=== PATIENT | male | born 1950 | race Caucasian/White ===

== ENCOUNTER 2017-12-09 08:30 | Inpatient (IN) | payer MEDICARE, BC ==
[~2017-12-09] VITALS: Ht 177.8 cm; Wt 108.0 kg
[2017-12-11 15:12] LABS: BASOPHILS % (AUTO) 0.4 % (0-1); EOSINOPHILS # (AUTO) 0.1 X10'3 (0-0.9); LYMPHOCYTES # (AUTO) 2.1 X10'3 (1.1-4.8); LYMPHOCYTES % (AUTO) 28.8 % (21-51); MEAN CORPUSCULAR HEMOGLOBIN 31.1 PG (27.0-31.0); MEAN CORPUSCULAR HGB CONC 34.9 % (33.0-36.5); MEAN CORPUSCULAR VOLUME 88.9 FL (78-98); MEAN PLATELET VOLUME 8.1 FL (7.4-10.4); MONOCYTES # (AUTO) 0.7 X10'3 (0-0.9); MONOCYTES % (AUTO) 9.5 % (2-12); NEUTROPHILS # (AUTO) 4.4 X10'3 (1.8-7.7); NEUTROPHILS % (AUTO) 59.3 % (42-75); PRE OP HEMATOCRIT 41.9 % (42.0-52.0); PRE OP HEMOGLOBIN 14.6 g/dL (14.0-17.9); PRE OP PLATELET COUNT 246 X10'3 (140-440); RED BLOOD COUNT 4.72 X10'6 (4.70-6.10); RED CELL DISTRIBUTION WIDTH 12.8 % (11.5-14.5)
[2017-12-11 15:16] LABS: CLARITY,URINE CLOUDY (Clear); COLOR,URINE YELLOW (Yellow); GLUCOSE, URINE NEGATIVE (Neg); KETONES,URINE NEGATIVE (Neg); LEUKOCYTE ESTERASE ,URINE NEGATIVE (Neg); NITRITES, URINE NEGATIVE (Neg); OCCULT BLOOD,URINE TRACE-INTACT (Neg); PROTEIN,URINE NEGATIVE (Neg); UROBILINOGEN,URINE 0.2 E.U/dL (0.2-1.0)
[2017-12-11 15:22] LABS: HEMOGLOBIN A1C 6.9 % (4.5-6.2)
[2017-12-11 15:23] LABS: UA COLLECTION TYPE CLN CATCH MIDSTREAM
[2017-12-11 15:23] LABS: PRE OP PROTIME 10.4 SECONDS (9.0-12.0)
[2017-12-11 15:24] LABS: BACTERIA,URINE FEW /HPF (Neg); RBC,URINE 0-2 /HPF (0-2); SQUAMOUS EPITHELIAL CELL,UR FEW /LPF (FEW)
[2017-12-11 15:25] LABS: AMORPHOUS PHOSPHATES 2+
[2017-12-11 15:28] LABS: ALBUMIN 3.9 G/DL (3.4-5.0); ALBUMIN/GLOBULIN RATIO 1.1 (1.1-1.5); ALKALINE PHOSPHATASE 58 IU/L (46-116); BLOOD UREA NITROGEN 18 MG/DL (7-18); BUN/CREATININE RATIO 16.8 (5.4-32.0); CALCIUM 9.1 MG/DL (8.5-10.1); CHLORIDE 104 MMOL/L (99-107); CREATININE 1.07 MG/DL (0.60-1.10); PRE OP ALT 53 U/L (30-65); PRE OP ANION GAP 9 (8-16); PRE OP AST 24 U/L (10-37); PRE OP BILIRUB, TOTAL 0.5 MG/DL (0.0-1.0); PRE OP GLUCOSE 197 MG/DL (70-104); PRE OP POTASSIUM 4.4 MMOL/L (3.4-5.1); PRE OP SODIUM 141 MMOL/L (135-145); TOTAL CARBON DIOXIDE 28.1 MMOL/L (24-32); TOTAL PROTEIN 7.4 G/DL (6.4-8.2); eGFR 69 ML/MIN
[2017-12-11] MEDS ORDERED: TESTOSTERONE SUPPORT PO (15:33)
[2017-12-11] MEDS ORDERED: UBID100C16 PO (15:33)
[2017-12-11] MEDS ORDERED: LEVO1CAP3 PO (15:33)
[2017-12-11] MEDS ORDERED: CINN500C15 PO (15:33)
[2017-12-11] MEDS ORDERED: ATOR40TA72 PO (15:33)
[2017-12-11] MEDS ORDERED: MULT-933 PO (15:33)
[2017-12-11] MEDS ORDERED: BENA20TA10 PO (15:33)
[2017-12-11] MEDS ORDERED: METF500T3 PO (15:33)
[2017-12-11] MEDS ORDERED: ASPI81TA52 PO (15:33)
[2017-12-11] MEDS ORDERED: LINA5TAB4 PO (15:33)
[2017-12-11] MEDS ORDERED: TURM538C PO (15:33)
[2017-12-18] VITALS (20 sets, daily range): BP systolic 120–168; BP diastolic 72–94
[2017-12-18] MEDS ORDERED: ringers solution, lacted 1,000 ML IV SCH ×2 (05:00→09:03)
[2017-12-18] MEDS ORDERED: vancomycin inj 1,500 MG in normal saline 300ml IV soln IV ONE (05:30)
[2017-12-18] MEDS ORDERED: famotidine 20mg tablet PO ONE (05:30)
[2017-12-18] MEDS ORDERED: celeCOXIB 100mg capsule PO ONE (05:30)
[2017-12-18] MEDS ORDERED: ceFAZolin 2gm in dextrose, iso 100 ML IV ONE (05:30)
[2017-12-18] MEDS ORDERED: acetaminophen 325mg tablet PO ONE (05:30)
[2017-12-18] MEDS ORDERED: oxyCODONE SR 10mg (sust. release) tab PO ONE (05:30)
[2017-12-18] MEDS ORDERED: gabapentin 300mg capsule PO ONE (05:30)
[2017-12-18] MEDS ORDERED: tranexamic acid inj. 1,000 MG in normal saline 100ml IV soln 90 ML IV ONE (05:30)
[2017-12-18] MEDS ORDERED: metoclopramide 5 mg/ml inj IV ONE (05:30)
[2017-12-18] MEDS ORDERED: LIDOcaine 1% (10mg/ml) 2ml vial ONE (06:03)
[2017-12-18] MEDS ORDERED: epiNEPHrine 1 mg/ml inj ONE ×2 (06:41→07:24)
[2017-12-18] MEDS ORDERED: ROPIVAcaine 0.5% (5mg/ml) 30ml vial ONE ×2 (06:41→07:54)
[2017-12-18] MEDS ORDERED: cloNIDine hcl/PF 100mcg/ml inj ONE ×2 (06:41→07:13)
[2017-12-18] MEDS ORDERED: ketorolac trometh. 30mg/ml inj. ONE (06:41)
[2017-12-18] MEDS ORDERED: vancomycin 1,000mg inj ONE ×2 (06:59→08:26)
[2017-12-18] MEDS ORDERED: midazolam 2 mg/2 ml injection ONE ×2 (07:16→07:41)
[2017-12-18] MEDS ORDERED: fentaNYL/PF 50MCG/1 ML 2ML syringe ONE (07:16)
[2017-12-18] MEDS ORDERED: MORPHINE SULFATE/PF 0.5 MG/ML 10ML AMPUL ONE (07:21)
[2017-12-18] MEDS ORDERED: diphenhydrAMINE 50 mg/ml inj ONE (07:25)
[2017-12-18] MEDS ORDERED: LIDOcaine 1%/PF (10mg/ml) 5ml vial ONE (07:45)
[2017-12-18] MEDS ORDERED: propofol inj 20 ML IV ONE ×2 (07:45→08:56)
[2017-12-18] MEDS ORDERED: naloxone 2mg/2ml inj 2 MG in normal saline 500ml IV soln 500 ML IV PRN (09:03)
[2017-12-18] MEDS ORDERED: proCHLORperazine 10 MG/2 ml inj IV PRN (09:05)
[2017-12-18] MEDS ORDERED: morphine 4 MG/ML inj SYRINge IV PRN ×3 (09:05→10:00)
[2017-12-18] MEDS ORDERED: ondansetron/PF 4mg/2ml inj IV PRN ×3 (09:05→10:00)
[2017-12-18] MEDS ORDERED: diphenhydrAMINE 50 mg/ml inj IV PRN (09:05)
[2017-12-18] MEDS ORDERED: meperidine/PF 50mg/ml syringe IV PRN ×3 (09:05)
[2017-12-18] MEDS ORDERED: dexamethasone 4mg/ml inj ONE (09:53)
[2017-12-18] MEDS: potassium cl 20mEq in 1/2 NS 1,000 ML IV SCH ×2 (09:58→20:30)
[2017-12-18] MEDS ORDERED: diphenhydrAMINE 25mg capsule PO PRN (10:00)
[2017-12-18] MEDS ORDERED: magnesium hydroxide 30ml (MOM) UD suspension PO PRN (10:00)
[2017-12-18] MEDS ORDERED: MESSAGE TO PHARMACY PO ONE (10:00)
[2017-12-18] MEDS ORDERED: dextrose ORAL solution 15 GM/59 ML bottle PO PRN ×2 (10:00)
[2017-12-18] MEDS ORDERED: bisacodyl 10mg suppository rectal RC PRN (10:00)
[2017-12-18] MEDS ORDERED: acetaminophen 325mg tablet PO PRN (10:00)
[2017-12-18] MEDS ORDERED: glucagon, human recombinant 1mg kit SUBCUT PRN (10:00)
[2017-12-18] MEDS ORDERED: dextrose 50%-water 50ml dispensing syringe IV PRN ×2 (10:00)
[2017-12-18] MEDS: diphenhydrAMINE 25mg capsule PO PRN ×2 (12:26→20:42)
[2017-12-18] MEDS: oxyCODONE/APAP 10/325mg tablet PO SCH ×3 (14:33→20:25)
[2017-12-18] MEDS: gabapentin 300mg capsule PO SCH ×2 (14:33→20:28)
[2017-12-18] MEDS: ceFAZolin 2gm in dextrose, iso 100 ML IV SCH (16:52)
[2017-12-18] MEDS: celeCOXIB 100mg capsule PO SCH (20:24)
[2017-12-18] MEDS: ascorbic acid 500mg tablet PO SCH (20:26)
[2017-12-18] MEDS: lisinopril 20mg tablet PO SCH (20:27)
[2017-12-18] MEDS: atorvastatin 20mg tablet PO SCH (20:28)
[2017-12-18] MEDS: sennosides 8.6mg tablet PO SCH (20:29)
[2017-12-18] MEDS: insulin glargine (Lantus) pen - multi-dose SQ SCH ×2 (20:45→22:06)
[2017-12-19] MEDS: ceFAZolin 2gm in dextrose, iso 100 ML IV SCH (00:11)
[2017-12-19] MEDS: oxyCODONE/APAP 10/325mg tablet PO SCH ×6 (00:14→19:34)
[2017-12-19] MEDS: potassium cl 20mEq in 1/2 NS 1,000 ML IV SCH ×4 (01:58→22:40)
[2017-12-19 02:36] VITALS: BP 121/72
[2017-12-19 06:00] VITALS: BP 133/73
[2017-12-19 06:15] LABS: BASOPHILS % (AUTO) 0.2 % (0-1); EOSINOPHILS # (AUTO) 0.2 X10'3 (0-0.9); EOSINOPHILS % (AUTO) 1.4 % (0-6); HEMATOCRIT 36.8 % (42.0-52.0); HEMOGLOBIN 12.7 g/dl (14.0-17.9); LYMPHOCYTES # (AUTO) 1.5 X10'3 (1.1-4.8); LYMPHOCYTES % (AUTO) 13.7 % (21-51); MEAN CORPUSCULAR HEMOGLOBIN 30.8 PG (27.0-31.0); MEAN CORPUSCULAR HGB CONC 34.4 % (33.0-36.5); MEAN CORPUSCULAR VOLUME 89.6 FL (78-98); MEAN PLATELET VOLUME 7.9 FL (7.4-10.4); MONOCYTES # (AUTO) 1.2 X10'3 (0-0.9); NEUTROPHILS # (AUTO) 8.1 X10'3 (1.8-7.7); NEUTROPHILS % (AUTO) 73.7 % (42-75); PLATELET COUNT 228 X10'3 (140-440); RED BLOOD COUNT 4.11 X10'6 (4.70-6.10); RED CELL DISTRIBUTION WIDTH 12.9 % (11.5-14.5)
[2017-12-19 06:43] LABS: ANION GAP 8 (8-16); CHLORIDE 106 MMOL/L (99-107); SODIUM 141 MMOL/L (135-145); TOTAL CARBON DIOXIDE 27.1 MMOL/L (24-32)
[2017-12-19] MEDS: ascorbic acid 500mg tablet PO SCH ×2 (07:14→19:32)
[2017-12-19] MEDS: gabapentin 300mg capsule PO SCH ×3 (07:14→19:33)
[2017-12-19] MEDS: lisinopril 20mg tablet PO SCH ×2 (07:15→19:32)
[2017-12-19] MEDS: celeCOXIB 100mg capsule PO SCH ×2 (07:15→19:32)
[2017-12-19] MEDS: multivitamins, therapeutics tablet PO SCH (07:15)
[2017-12-19] MEDS: oxyCODONE/APAP 10/325mg tablet PO PRN ×3 (09:32→17:35)
[2017-12-19] MEDS: aspirin 325mg tablet PO SCH (09:32)
[2017-12-19] MEDS: insulin Lispro (HumaLOG) vial - multi-dose SQ SCH ×3 (09:34→19:05)
[2017-12-19 10:00] VITALS: BP 145/70
[2017-12-19 15:00] VITALS: BP 129/73
[2017-12-19 18:46] VITALS: BP 132/76
[2017-12-19] MEDS: atorvastatin 20mg tablet PO SCH (19:33)
[2017-12-19] MEDS: sennosides 8.6mg tablet PO SCH (19:33)
[2017-12-19] MEDS: insulin glargine (Lantus) pen - multi-dose SQ SCH (21:23)
[2017-12-19 23:51] VITALS: BP 162/97
[2017-12-20] MEDS: oxyCODONE/APAP 10/325mg tablet PO SCH ×6 (00:14→19:57)
[2017-12-20] MEDS: morphine 4 MG/ML inj SYRINge IV PRN ×2 (03:40→07:28)
[2017-12-20 05:00] VITALS: BP 168/90
[2017-12-20 05:39] LABS: BASOPHILS % (AUTO) 0.2 % (0-1); EOSINOPHILS # (AUTO) 0.3 X10'3 (0-0.9); EOSINOPHILS % (AUTO) 2.6 % (0-6); HEMOGLOBIN 11.7 g/dl (14.0-17.9); LYMPHOCYTES # (AUTO) 1.5 X10'3 (1.1-4.8); LYMPHOCYTES % (AUTO) 14.9 % (21-51); MEAN CORPUSCULAR HEMOGLOBIN 30.7 PG (27.0-31.0); MEAN CORPUSCULAR HGB CONC 34.4 % (33.0-36.5); MEAN CORPUSCULAR VOLUME 89.3 FL (78-98); MEAN PLATELET VOLUME 8.2 FL (7.4-10.4); MONOCYTES % (AUTO) 10.7 % (2-12); NEUTROPHILS % (AUTO) 71.6 % (42-75); PLATELET COUNT 214 X10'3 (140-440); RED BLOOD COUNT 3.81 X10'6 (4.70-6.10); RED CELL DISTRIBUTION WIDTH 12.6 % (11.5-14.5); WHITE BLOOD COUNT 9.8 X10'3 (4.5-11.0)
[2017-12-20] MEDS: multivitamins, therapeutics tablet PO SCH (07:28)
[2017-12-20] MEDS: lisinopril 20mg tablet PO SCH ×2 (07:28→19:57)
[2017-12-20] MEDS: celeCOXIB 100mg capsule PO SCH ×2 (07:28→19:57)
[2017-12-20] MEDS: gabapentin 300mg capsule PO SCH ×3 (07:28→19:57)
[2017-12-20] MEDS: aspirin 325mg tablet PO SCH (07:30)
[2017-12-20] MEDS: ascorbic acid 500mg tablet PO SCH ×2 (07:31→19:57)
[2017-12-20 11:31] VITALS: BP 147/80
[2017-12-20] MEDS: insulin Lispro (HumaLOG) vial - multi-dose SQ SCH ×2 (13:25→18:56)
[2017-12-20] MEDS: oxyCODONE/APAP 10/325mg tablet PO PRN (16:26)
[2017-12-20 18:10] VITALS: BP 132/72
[2017-12-20] MEDS: sennosides 8.6mg tablet PO SCH (19:57)
[2017-12-20] MEDS: atorvastatin 20mg tablet PO SCH (19:58)
[2017-12-20] MEDS: insulin glargine (Lantus) pen - multi-dose SQ SCH (21:41)
[2017-12-20 22:10] VITALS: BP 139/75
[2017-12-21] MEDS: oxyCODONE/APAP 10/325mg tablet PO SCH ×3 (00:02→07:30)
[2017-12-21] MEDS: oxyCODONE/APAP 10/325mg tablet PO PRN ×2 (04:02→07:32)
[2017-12-21 05:00] VITALS: BP 148/81
[2017-12-21 05:49] LABS: BASOPHILS % (AUTO) 0.3 % (0-1); EOSINOPHILS # (AUTO) 0.2 X10'3 (0-0.9); EOSINOPHILS % (AUTO) 2.5 % (0-6); HEMATOCRIT 33.6 % (42.0-52.0); HEMOGLOBIN 11.7 g/dl (14.0-17.9); LYMPHOCYTES # (AUTO) 1.4 X10'3 (1.1-4.8); LYMPHOCYTES % (AUTO) 14.3 % (21-51); MEAN CORPUSCULAR HEMOGLOBIN 30.9 PG (27.0-31.0); MEAN CORPUSCULAR HGB CONC 34.9 % (33.0-36.5); MEAN CORPUSCULAR VOLUME 88.3 FL (78-98); MEAN PLATELET VOLUME 7.9 FL (7.4-10.4); MONOCYTES # (AUTO) 1.2 X10'3 (0-0.9); MONOCYTES % (AUTO) 12.7 % (2-12); NEUTROPHILS # (AUTO) 6.7 X10'3 (1.8-7.7); NEUTROPHILS % (AUTO) 70.2 % (42-75); PLATELET COUNT 218 X10'3 (140-440); RED CELL DISTRIBUTION WIDTH 12.4 % (11.5-14.5); WHITE BLOOD COUNT 9.5 X10'3 (4.5-11.0)
[2017-12-21] MEDS: gabapentin 300mg capsule PO SCH (07:29)
[2017-12-21] MEDS: celeCOXIB 100mg capsule PO SCH (07:29)
[2017-12-21] MEDS: multivitamins, therapeutics tablet PO SCH (07:29)
[2017-12-21] MEDS: lisinopril 20mg tablet PO SCH (07:29)
[2017-12-21] MEDS: aspirin 325mg tablet PO SCH (07:30)
[2017-12-21] MEDS: ascorbic acid 500mg tablet PO SCH (07:30)
[2017-12-21] MEDS: insulin Lispro (HumaLOG) vial - multi-dose SQ SCH (08:51)
== END 2017-12-21 10:40 | disposition home or self-care (01) | DRG 470 ==
LOC: PAS IN 12-18 05:37 → EDSTATUS 12-18 07:30 → ORTHO 4S 12-18 11:15
PROVIDERS: ADMIT Orthopaedic Surgery; ATTEND Orthopaedic Surgery
PROC: 3E0T3BZ Introduction of Anesthetic Agent into Peripheral Nerves and Plexi, Percutaneous Approach (ICD-10-PCS; 2017-12-18)
PROC: 0SRD0J9 Replacement of Left Knee Joint with Synthetic Substitute, Cemented, Open Approach (ICD-10-PCS; principal; 2017-12-18 07:25)
DX: M17.12 Unilateral primary osteoarthritis, left knee (principal); D62 Acute posthemorrhagic anemia; E11.9 Type 2 diabetes mellitus without complications; I25.10 Atherosclerotic heart disease of native coronary artery without angina pectoris; I10 Essential (primary) hypertension; E78.5 Hyperlipidemia, unspecified; Z88.6 Allergy status to analgesic agent; Z88.1 Allergy status to other antibiotic agents; Z79.899 Other long term (current) drug therapy; Z79.84 Long term (current) use of oral hypoglycemic drugs
CPT/HCPCS: 36415; 71046; 73560; 80051; 80053; 81001; 82948; 83036; 85025; 85610; 85730; 86885; 86900; 86901; 87070; 87088; 93005; 97110; 97116; 97161; 97530; A6455; A7000; C1713; C1758; C1776; J0171; J0690; J0735; J1100; J1200; J1815; J1885; J2001; J2250; J2270; J2274; J2310; J2405; J2704; J2765; J2795; J3010; J3370; J3490; J7030; J7120; Q0163